=== PATIENT | female | born 1995 | race Caucasian/White ===

== ENCOUNTER 2022-02-06 12:02 | Emergency (ER) | payer SELFPAY ==
[~2022-02-06] VITALS: Ht 167.6 cm; Wt 66.0 kg
[2022-02-06 12:17] VITALS: BP 135/78
[2022-02-06] MEDS ORDERED: IBUPROFEN 600MG TABLET PO STA (13:12)
[2022-02-06] MEDS ORDERED: CYCL5TAB PO (14:40)
[2022-02-06] MEDS ORDERED: NAPR-681 PO (14:40)
== END 2022-02-06 15:12 | disposition home or self-care (01) ==
LOC: ER 12:02
DX: S16.1XXA Strain of muscle, fascia and tendon at neck level, initial encounter (principal); V44.5XXA Car driver injured in collision with heavy transport vehicle or bus in traffic accident, initial encounter; Y93.89 Activity, other specified; Y92.89 Other specified places as the place of occurrence of the external cause; Y99.8 Other external cause status
CPT/HCPCS: 81025; 99282